=== PATIENT | male | born 1985 | race Caucasian/White ===

== ENCOUNTER → 2018-05-30 09:22 | Outpatient (CLI) | payer MEDICAID, SELFPAY ==
--- NOTE | 2018-05-30 09:29 | XR_ITS ---
EXAM: XR thoracic spine 3V HISTORY: ITS.REASON: LUMP OF SKIN POSTERIOR NECK, ACUTE MIDLINE BACK PAIN Comparison: None FINDINGS: Normal alignment. No fracture or dislocation. No lytic or blastic change. No significant degenerative change. The disc spaces are preserved. IMPRESSION: No acute finding
== END ==
PROVIDERS: PCP Nurse Practitioner Family; Visit Provider Nurse Practitioner Family
DX: M54.6 Pain in thoracic spine (principal); K22.2 Esophageal obstruction
CPT/HCPCS: 72072

== ENCOUNTER → 2018-06-11 14:19 | Outpatient (CLI) | payer MEDICAID, SELFPAY ==
--- NOTE | 2018-06-11 14:36 | US_ITS ---
US soft tissue head and neck Ordering Physician: Jerri Rivera APRN Patient Age: 32 years: Male HISTORY: ITS.REASON: LUMP SOFT TISSUE OF RT THORACIC Palpable area on back back tenderness to touch noticed one month ago TECHNIQUE: Ultrasound the superficial soft tissues of upper back. -In order to address palpable area COMPARISON :No prior FINDINGS Scanning of the palpable area was performed. It reveals small area which corresponds just deep to the skin at the palpable Area It is located 4 mm deep to the skin surface & just beneath the skin layer, where we encounter this small slightly hypoechoic area/& which correlates with the palpable area This measures 1.2 cm cm length x 1.3 cm transverse X 0.6 cm AP small slightly unique area. Only very Slightly more hyperechoic than adjacent linear subcutaneous fat... Most likely reflecting a small lipoma ------ IMPRESSION: The Small palpable area at upper back most compatible with a small lipoma by ultrasound. Ultrasound does identified a small focal area just beneath the skin surface to correlate If it should enlarge or become more problematic suggest CT follow-up to further evaluate as CT is excellent imaging tool for to confirm fat/ lipoma
== END ==
PROVIDERS: PCP Nurse Practitioner Family; Visit Provider Nurse Practitioner Family
DX: R22.2 Localized swelling, mass and lump, trunk (principal)
CPT/HCPCS: 76536

== ENCOUNTER → 2019-03-27 16:35 | Outpatient (CLI) | payer SELFPAY ==
--- NOTE | 2019-03-27 16:41 | XR_ITS ---
PROCEDURE: XR ELBOW LT MIN 3V CLINICAL INDICATION: LEFT ELBOW PAIN COMPARISON: No exams were available for comparison FINDINGS: No fracture or dislocation. No lytic or blastic change. There is normal mineralization. The joint spaces are well-preserved. No significant degenerative/arthritic changes. No erosive changes evident. Other findings:None. IMPRESSION: No acute findings. Dictated by: Martin Munoz MD 03/27/2019 19:06 Electronically signed by Martin Munoz MD in [place] 03/27/2019 19:06
== END ==
PROVIDERS: PCP Nurse Practitioner; Visit Provider Nurse Practitioner
DX: M25.522 Pain in left elbow (principal); R06.02 Shortness of breath
CPT/HCPCS: 73080

== ENCOUNTER → 2019-04-02 09:17 | Outpatient (CLI) | payer OTHER, SELFPAY ==
--- NOTE | 2019-04-02 | CA_ITS ---
APPROVED REPORT Exam: Exercise Treadmill Technologist: Jewell Stein Ht: 5 ft 3 in Wt: 286 lbs BSA: 2.25 m2 HR: 68 bpm BP: 123/64 mmHg Indications: Shortness of Breath Medical History Medications: Multi Vitamin,,,,, Fish Oil,,,,, Flonase,,,,, ZYRTEC,,,,, Aleve,,,,, Stress Test Details Test: Exercise stress testing was performed using a Yoav protocol. HR Resting HR: 85 bpm Max Heart Rate (APMHR): 185 bpm Max HR Achieved: 170 bpm Target HR (85% APMHR): 157 bpm % of APMHR: 91 Recovery HR: 98 bpm BP Resting BP: 123.0/64.0 mmHg Max BP: 210.0/76.0 mmHg Recovery BP: 125.0/67.0 mmHg ECG Clinical Exercise duration: 07:24 min Highest Stage Achieved: Exercise capacity: 10.1 METs Stress ECG Conclusion Resting ECG: Normal sinus rhythm, NS ST-T abnormalities inferiorly. Symptoms: Dyspnea. No chest pain Arrhythmias/Ectopy: Rare PVC, PAC ST-T Changes: Mild exaggeration of baseline ST abnormalities inferiorly with otherwise normal ST response to exercise. Conclusion: Probably normal GXT. GXT only (no imaging). Test Summary REST . . . . . . . Sitting REST . . . . . . . Standing REST 08:40 0.0 0.0 85 . 123/ 64 . . Stage 1 01:00 10.0 1.7 106 . . . . Stage 1 02:00 10.0 1.7 108 . . . . Stage 1 03:00 10.0 1.7 115 . 164/ 88 . . Stage 2 01:00 12.0 2.5 128 . . . . Stage 2 02:00 12.0 2.5 137 . . . . Stage 2 03:00 12.0 2.5 141 . 190/ 80 . . Stage 3 01:00 14.0 3.4 166 . . . . Stage 3 01:24 14.0 3.4 170 . . . Stop exercise at 07:24 RECOVERY . . . . . . . Protocol changed to Manual Treadmill RECOVERY 01:00 0.0 0.0 144 . 210/ 76 . . RECOVERY 02:00 0.0 0.0 131 . 210/ 76 . . RECOVERY 03:00 0.0 0.0 104 . 210/ 76 . . RECOVERY 04:00 0.0 0.0 101 . 150/ 75 . . RECOVERY 05:00 0.0 0.0 96 . 125/ 67 . . RECOVERY 05:27 0.0 0.0 95 . 125/ 67 . . Electronically signed by : Evan Mcdonnell, 04/02/2019 20:06:42
--- NOTE | 2019-04-02 10:30 | CA_ITS ---
APPROVED REPORT EXAM: Comprehensive 2D, Doppler, and color-flow Echocardiogram Personnel Representative: Shannon Fishman RDCS Ht: 5 ft 3 in Wt: 286lbs BSA: 2.25 BP: 110/70 mmHg Indications: Shortness of Breath, Obesity 2D Dimensions LVOT 1.86 cm (M/F) 1.5-2.5 M-Mode Dimensions RVDd 3.33 cm (0.9-2.6) LVDd 5.62 cm (3.5-5.7) LVDs 4.34 cm (3.5-5.7) IVSd 1.16 cm (0.6-1.1) PWd 0.92 cm (0.6-1.1) EF (Teich) 45.20% FS 22.80% EDV (Teich) 154.90 mL ESV (Teich) 84.90 mL LV Diastology E/A Ratio 1.07 Mitral Valve MV A Velocity 70.00 (40-130 cm/s) Left Ventricle Left atrium is normal size, left ventricle is normal size, there is no concentric left ventricular hypertrophy, visually estimated ejection fraction 55% with no regional wall motion abnormality, diastolic parameters are within normal range. Right Ventricle Right atrium is normal size, right ventricle is mildly enlarged with normal contractility. Aortic Valve Aortic valve is grossly normal, there is no aortic stenosis or aortic insufficiency. Mitral Valve Mitral valve is grossly normal, there is mild mitral regurgitation. Tricuspid Valve Tricuspid valve is grossly normal, there is mild tricuspid regurgitation. Tricuspid regurgitation jet velocity is inadequate for calculation of the right ventricular systolic pressure. Pulmonic Valve Pulmonic valve is poorly visualized. Great Vessels Aortic root is normal size. Pericardium No significant pericardial effusion noted. Conclusion 1. Normal left ventricular size, preserved left ventricular systolic function, visually estimated ejection fraction 55% with no regional wall motion abnormality, diastolic parameters are within normal range. 2. Mildly enlarged right ventricle with normal contractility. 3. Mild mitral and tricuspid regurgitation. 4. No significant pericardial effusion noted. Electronically signed by : Scott Gentile, 04/03/2019 06:13:36
== END ==
PROVIDERS: PCP Nurse Practitioner; Visit Provider Nurse Practitioner
DX: R06.02 Shortness of breath (principal); R06.2 Wheezing
CPT/HCPCS: 93017; 93306; 94060; 94726; 94729

== ENCOUNTER → 2019-12-09 11:14 | Outpatient (CLI) | payer OTHER, SELFPAY ==
[2019-12-10 13:49] LABS: Covid-19 Nasal PCR Sendout Lex Not Detected
== END ==
PROVIDERS: PCP Nurse Practitioner; Visit Provider Nurse Practitioner
DX: Z03.818 Encounter for observation for suspected exposure to other biological agents ruled out (principal)
CPT/HCPCS: U0004

== ENCOUNTER → 2020-01-02 12:09 | Outpatient (CLI) | payer OTHER, SELFPAY ==
[2020-01-02 17:39] LABS: Coronavirus 19 IgG Antibody Negative (Negative); Coronavirus 19 IgM Antibody Negative (Negative)
[2020-01-03 15:30] LABS: Covid-19 Nasal PCR Sendout Lex Positive
== END ==
PROVIDERS: PCP Family Medicine; Visit Provider Nurse Practitioner Family
DX: Z20.828 Contact with and (suspected) exposure to other viral communicable diseases (principal); U07.1 COVID-19
CPT/HCPCS: 36415; 86328; U0004

== ENCOUNTER → 2020-01-18 10:34 | Outpatient (CLI) | payer OTHER, SELFPAY | PROVIDERS: PCP Family Medicine; Visit Provider Family Medicine | DX: Z20.828 Contact with and (suspected) exposure to other viral communicable diseases (principal); U07.1 COVID-19 | CPT/HCPCS: U0003 ==

== ENCOUNTER → 2020-05-19 12:29 | Outpatient (CLI) | payer BC, SELFPAY ==
--- NOTE | 2020-05-19 12:35 | XR_ITS ---
PROCEDURE: XR KUB CLINICAL INDICATION: LT FLANK PAIN COMPARISON: No exams were available for comparison FINDINGS: Gas pattern-The bowel gas pattern is unremarkable. No obvious obstruction. Calcifications-No abnormal calcifications are evident. No obvious renal or ureteral calculi. Calcified phleboliths are noted in the pelvis. Bones-No acute bony anomalies evident. IMPRESSION: No acute findings. Dictated by: Loida Kiran 05/19/2020 14:08 Loida Kiran in [place] 05/19/2020 14:08
== END ==
PROVIDERS: PCP Nurse Practitioner Family; Visit Provider Nurse Practitioner Family
DX: R10.9 Unspecified abdominal pain (principal)
CPT/HCPCS: 74018

== ENCOUNTER 2022-08-21 08:44 | Emergency (ER) | payer BC, SELFPAY ==
[2022-08-21 08:46] VITALS: BP 131/69; PULSE 68; RESP 16; TEMP 36.9; O2SAT 95; BMI 55.7
--- NOTE | 2022-08-21 09:03 | EXP.UTC ---
Discharge Plan Disposition Patient Disposition: Home, Self-Care Condition: Good Prescriptions Prescriptions: New ciprofloxacin-dexamethasone 0.3-0.1 % Drops,Suspension 2 drp OTIC (EAR) BID 7 Days Qty: 1 0RF Referrals Follow up/Referrals: Sanna Kingston MD [Primary Care Provider] - See instructions Activity Restrictions/Add. Instructions Additional Instructions/Restrictions: Take tylenol or ibuprofen for pain if you have ear pain today. Use the ear drops as directed. Follow up with your regular doctor. GO TO THE ER FOR ANY WORSENING SYMPTOMS Clinical Impressions Clinical Impression: Impacted cerumen, right ear Instructions Patient Instructions: How to Instill Ear Drops, DI for Cerumen Impaction, Cerumen Impaction Discharge ED Provider: Juan R Orlando [facility] [place] HPI General Stated complaint: Ear pain R ear, Time Seen by Provider: 08/21/22 09:03 History of Present Illness Provider Complaint: He states that for the past 4 days he has had left ear pressure, left ear decreased hearing and mild left ear pain. Related Data Previous Rx's Medication Instructions Recorded ciprofloxacin 0.3 %-dexamethasone 2 drp otic (ear) BID 7 days #1 ea 08/21/22 0.1 % ear drops,suspension Allergies Allergy/AdvReac Type Severity Reaction Status Date / Time From BACTRIM Allergy Unknown Uncoded 01/29/20 17:20 [facility] Disclaimer: The information contained in this section may have been updated after the patient was seen, as this information can be updated by other users. Social History Smoking Status: Never smoker alcohol intake: never current occupational status: employed Travel in the last 8 weeks: None ROS Obtained: Yes All systems reviewed & no additional complaints except as documented Constitutional Constitutional: Denies chills and Denies fever(s) Eyes Eyes: Denies eye discharge ENT Ears, Nose, Mouth, and Throat: Reports as per HPI, Denies dizziness, Reports otalgia and Denies sore throat Cardiovascular Cardiovascular: Denies chest pain Respiratory Respiratory: Denies shortness of breath, Denies chest congestion, Denies cough, Denies stridor and Denies wheezing Gastrointestinal Gastrointestingal: Denies nausea or vomiting Musculoskeletal Musculoskeletal: Reports system reviewed and no additional complaints, except as documented and Denies arthralgias Integumentary/Breasts Skin/Breast: Denies rash Neurologic Neurologic: Denies dizziness and Denies paresthesias Allergic/Immunologic Allergic/Immunologic: Denies wheezing Physical Exam General General appearance: alert and in no apparent distress Head Head exam: atraumatic, normocephalic and normal inspection Eye Eye exam: Present normal appearance, PERRL and EOMI ENT ENT exam: Present normal oropharynx, mucous membranes moist and normal external ear exam Expanded ENT Exam TM/Canal exam: Right TM: cerumen impaction Nose exam: Absent sinus tenderness Nasal speculum exam: Bilateral: normal Mouth exam: Present normal external inspection; Absent drooling Teeth exam: Present normal inspection Throat exam: Present normal inspection Neck Neck exam: Present normal inspection, full ROM and trachea midline; Absent meningismus or lymphadenopathy Chest Chest inspection: Present normal inspection and symmetric chest wall rise; Absent tenderness Respiratory Respiratory exam: Present normal lung sounds bilaterally; Absent respiratory distress Cardiovascular Cardiovascular exam: Present regular rate and normal rhythm; Absent JVD Abdominal Exam Abdominal exam: Present soft and normal bowel sounds; Absent distention, tenderness or guarding Extremities Exam Extremities exam: Present normal inspection, full ROM and normal capillary refill; Absent calf tenderness Back Exam Back exam: Present normal inspection; Absent tenderness Neurological Exam Neurological exam: Present alert and oriented X3 Psychiatric P
[2022-08-21 09:42] VITALS: BP 131/69; PULSE 68; RESP 16; TEMP 36.9; O2SAT 95
== END 2022-08-21 09:43 | disposition home or self-care (01) ==
PROVIDERS: Emergency Provider Nurse Practitioner Family; PCP Family Medicine
DX: H61.21 Impacted cerumen, right ear (principal); H92.01 Otalgia, right ear
CPT/HCPCS: 99204; 99212; 99214; G0463

== ENCOUNTER 2022-09-27 16:10 | Emergency (ER) | payer SELFPAY ==
[2022-09-27 16:11] VITALS: BP 140/65; PULSE 98; RESP 16; TEMP 36.7; O2SAT 97; BMI 55.7
--- NOTE | 2022-09-27 16:22 | EXP.UTC ---
Discharge Plan Disposition Patient Disposition: Home, Self-Care Condition: Good Prescriptions Prescriptions: New ibuprofen [IBU] 800 mg tablet 800 mg PO Q8HP PRN (Reason: Moderate Pain) Qty: 30 0RF No Action ciprofloxacin-dexamethasone 0.3-0.1 % Drops,Suspension 2 drp OTIC (EAR) BID 7 Days Qty: 1 0RF Referrals Follow up/Referrals: Sanna Kingston MD [Primary Care Provider] - See instructions Gilles Lewis DO [Staff Physician] - See instructions Activity Restrictions/Add. Instructions Additional Instructions/Restrictions: Rest the extremity, apply ice for 15 minutes as tolerated three or four times per day, Wear the ela wrap for compression, Elevate the extremity as tolerated while you are resting. Take ibuprofen for pain. I sent in a prescription to your pharmacy. Follow up with Dr. Lewis (orthopedics). I put in a referral but you need to call his office and schedule an appointment. Follow up with your regular doctor. 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 He has had left ankle and left foot pain since then. He denies any other injury. Related Data Previous Rx's Medication Instructions Recorded ciprofloxacin 0.3 %-dexamethasone 2 drp otic (ear) BID 7 days #1 ea 08/21/22 0.1 % ear drops,suspension ibuprofen 800 mg tablet (IBU) 800 mg PO Q8HP PRN Moderate Pain 09/27/22 #30 tabs Allergies Allergy/AdvReac Type Severity Reaction Status Date / Time From BACTRIM Allergy Unknown Uncoded 01/29/20 17:20 [facility] Disclaimer: The information contained in this section may have been updated after the patient was seen, as this information can be updated by other users. Social History Smoking Status: Never smoker alcohol intake: never current occupational status: employed Travel in the last 8 weeks: None ROS Obtained: Yes All systems reviewed & no additional complaints except as documented Constitutional Constitutional: Denies chills and Denies fever(s) Eyes Eyes: Denies eye discharge ENT Ears, Nose, Mouth, and Throat: Denies dizziness, Denies otalgia and Denies sore throat Cardiovascular Cardiovascular: Denies chest pain Respiratory Respiratory: Denies shortness of breath, Denies chest congestion, Denies cough, Denies stridor and Denies wheezing Gastrointestinal Gastrointestingal: Denies nausea or vomiting Musculoskeletal Musculoskeletal: Reports as per HPI Integumentary/Breasts Skin/Breast: Denies rash Neurologic Neurologic: Denies dizziness and Denies paresthesias Allergic/Immunologic Allergic/Immunologic: Denies wheezing Physical Exam General General appearance: alert and in no apparent distress Head Head exam: atraumatic, normocephalic and normal inspection Eye Eye exam: Present normal appearance, PERRL and EOMI ENT ENT exam: Present normal exam, normal oropharynx, mucous membranes moist, TM's normal bilaterally and normal external ear exam Neck Neck exam: Present normal inspection, full ROM and trachea midline; Absent meningismus or lymphadenopathy Chest Chest inspection: Present normal inspection and symmetric chest wall rise; Absent tenderness Respiratory Respiratory exam: Present normal lung sounds bilaterally; Absent respiratory distress Cardiovascular Cardiovascular exam: Present regular rate and normal rhythm; Absent JVD Abdominal Exam Abdominal exam: Present soft and normal bowel sounds; Absent distention, tendernes
--- NOTE | 2022-09-27 16:24 | XR_ITS ---
PROCEDURE INFORMATION: Exam: XR Left Ankle Exam date and time: 09/27/2022 4:26 PM Age: 37 years old Clinical indication: Pain; Ankle; Left; Additional info: Fall TECHNIQUE: Imaging protocol: Radiologic exam of the left ankle. Views: 3 or more views. COMPARISON: No relevant prior studies available. FINDINGS: Bones/joints: There is evidence for old injury of the lateral malleolus. No acute fracture or dislocation is identified. Soft tissues: There is moderate soft tissue swelling about foot. IMPRESSION: 1. No acute osseous injury. 2. Soft tissue swelling about the foot with evidence for old injury of the lateral malleolus.
--- NOTE | 2022-09-27 16:24 | XR_ITS ---
PROCEDURE INFORMATION: Exam: XR Left Foot Exam date and time: 09/27/2022 4:27 PM Age: 37 years old Clinical indication: Pain; Foot; Left; Additional info: Fall TECHNIQUE: Imaging protocol: Radiologic exam of the left foot. Views: 3 or more views. COMPARISON: CR Ankle L 09/27/2022 4:26 PM FINDINGS: Bones/joints: There is a hallux valgus deformity. No acute fracture or dislocation is identified. Soft tissues: There is prominence of the soft tissues. IMPRESSION: No acute osseous injury.
[2022-09-27 17:19] VITALS: BP 140/65; PULSE 98; RESP 16; TEMP 36.7; O2SAT 97
== END 2022-09-27 17:21 | disposition home or self-care (01) ==
PROVIDERS: Emergency Provider Nurse Practitioner Family; PCP Family Medicine
DX: S93.402A Sprain of unspecified ligament of left ankle, initial encounter (principal); S93.602A Unspecified sprain of left foot, initial encounter; X50.1XXA Overexertion from prolonged static or awkward postures, initial encounter
CPT/HCPCS: 73610; 73630; 99212; 99214; G0463

== ENCOUNTER → 2022-11-04 11:47 | Outpatient (CLI) | payer OTHER, SELFPAY ==
--- NOTE | 2022-11-04 11:56 | XR_ITS ---
FINAL REPORT CLINICAL HISTORY: PAIN OF LEFT SCAPULA FINDINGS: THORACIC SPINE Two views demonstrate no acute fracture. There are [id number] degenerative changes with osteophytes. There is no malalignment. IMPRESSION: Degenerative changes as above. Reviewed, Interpreted and Dictated by Abdias Lazo III, MD Transcribed by Racheal Chen Authenticated and [facility]
--- NOTE | 2022-11-04 11:57 | XR_ITS ---
FINAL REPORT CLINICAL HISTORY: PAIN LT SCAPULA FINDINGS: Left shoulder Three views were obtained. There is no acute fracture or dislocation. The joint spaces appear normal. No soft tissue abnormality is identified. IMPRESSION: No acute process. Reviewed, Interpreted and Dictated by Abdias Lazo III, MD Transcribed by Racheal Chen Authenticated and [facility]
== END ==
PROVIDERS: PCP Family Medicine; Visit Provider Nurse Practitioner Family
DX: M89.8X1 Other specified disorders of bone, shoulder (principal)
CPT/HCPCS: 72072; 73030

== ENCOUNTER 2023-04-06 13:13 | Emergency (ER) | payer OTHER, MEDICAID, SELFPAY ==
[2023-04-06 13:25] VITALS: BP 134/78; PULSE 72; RESP 18; TEMP 36.8; O2SAT 97; BMI 58.6
--- NOTE | 2023-04-06 13:42 | EXP.UTC ---
Discharge Plan Disposition Patient Disposition: Home, Self-Care Condition: Good Prescriptions Prescriptions: New benzonatate [benzonatate] 100 mg capsule 100 mg PO TIDP PRN (Reason: Cough) Qty: 30 0RF methylprednisolone 4 mg Tablets,Dose Pack 4 mg PO DIRECTED 6 Days Qty: 21 0RF Rx Instructions: Take 1 pack as directed for 6 days amoxicillin-pot clavulanate 875-125 mg Tablet 1 tab PO Q12H Qty: 20 0RF oseltamivir [Tamiflu] 75 mg capsule 75 mg PO BID Qty: 10 0RF No Action atorvastatin 10 mg tablet 10 mg PO HS Patient Comments: TAKE 1 TABLET BY MOUTH ONCE DAILY montelukast 10 mg tablet 10 mg PO DAILY escitalopram oxalate 10 mg tablet 10 mg PO DAILY Patient Comments: TAKE 1 TABLET BY MOUTH ONCE DAILY DIRECTED . APPOINTMENT REQUIRED FOR FUTURE REFILLS Bessy Olmstead 200-62.5-25 mcg blister with device 1 ea INHALATION DAILY Referrals Follow up/Referrals: Sanna Kingston MD [Primary Care Provider] - See instructions Activity Restrictions/Add. Instructions Additional Instructions/Restrictions: Drink plenty of fluids. Take tylenol or ibuprofen for pain or fever. Take the medications as directed. Follow up with your regular doctor. GO TO THE ER FOR ANY WORSENING SYMPTOMS Throw your tooth brush away and get a new one. Clinical Impressions Clinical Impression: Influenza B, Strep throat Stand Alone Forms Stand Alone Forms: Work/School Release Instructions Patient Instructions: Influenza, DI for Strep Throat, DI for Influenza -- Adult, Oseltamivir Discharge ED Provider: Juan R Orlando [facility] [place] HPI General Stated complaint: tired, headache, muscle aches Mode of Arrival: Ambulatory Source of Information: Patient Limitations: No Limitations Time Seen by Provider: 04/06/23 13:42 Description of Symptoms (Recalled from Triage Doc. by RN): PATIENT C/O FATIGUE, BODY ACHES AND HEADACHE HEENT Symptoms (Recalled from RN notes): Yes Resp Symptoms (Recalled from RN notes): No Skin Symptoms (Recalled from RN notes): No MS Symptoms (Recalled from RN notes): No Functional Status (Recalled from RN notes): WNL Related Data Home Medications Medication Instructions Recorded Confirmed atorvastatin 10 mg tablet 10 mg PO HS 04/06/23 04/06/23 escitalopram oxalate 10 mg tablet 10 mg PO DAILY 04/06/23 04/06/23 fluticasone fur. 200 mcg-umeclid 1 ea inhalation DAILY 04/06/23 04/06/23 62.5 mcg-vilant 25 mcg inhalat.powder (Trelegy Ellipta) montelukast 10 mg tablet 10 mg PO DAILY 04/06/23 04/06/23 Previous Rx's Medication Instructions Recorded amoxicillin 875 mg-potassium 1 tab PO Q12H #20 tabs 04/06/23 clavulanate 125 mg tablet benzonatate 100 mg capsule 100 mg PO TIDP PRN Cough #30 caps 04/06/23 methylprednisolone 4 mg tablets in 4 mg PO DIRECTED 6 days #21 tabs 04/06/23 a dose pack oseltamivir 75 mg capsule (Tamiflu) 75 mg PO BID #10 caps 04/06/23 Allergies Allergy/AdvReac Type Severity Reaction Status Date / Time From BACTRIM Allergy Unknown Uncoded 12/06/22 13:11 Worker's Comp Is this a Worker's Comp case?: No [facility] Disclaimer: The information contained in this section may have been updated after the patient was seen, as this information can be updated by other users. Social History Smoking Status: Never smoker alcohol intake: never current occupational status: employed Travel in the last 8 weeks: None ROS Obtained: Yes All systems reviewed & no additional complaints except as documented Constitutional Constitutional: Reports chills and Reports fever(s) Eyes Eyes: Denies eye discharge ENT Ears, Nose, Mouth, and Throat: Reports as per HPI Cardiovascular Cardiovascular: Denies chest pain Respiratory Respiratory: Denies chest congestion and Reports cough Gastrointestinal Gastrointestingal: Reports nausea; Denies abdominal pain, constipation, cramping, diarrhea or vomiting Musculoskeletal Musculoskeletal: Denies arthralgias Integumentary/Breasts Skin/Breast: Denies rash Neurologic Neurologic: Denies paresthesias Physical Exam General General appearance: alert and in no apparent distress Head Head exam: atraumatic, normocephalic and normal inspection Eye Eye exam: Present normal appearance, PERRL and EOMI ENT ENT exam: Present mucous membranes moist and normal external ear exam Expanded ENT Exam TM/Canal exam: Bilateral TM: erythema and bulging Nose exam: Absent sinus tenderness Mouth exam: Present normal external inspection; Absent drooling Teeth exam: Present normal inspection Throat exam: Present tonsillar erythema, tonsillomegaly and tonsillar exudate Neck Neck exam: Present normal inspection, full ROM and trachea midline; Absent tenderness, meningismus or lymphadenopathy Chest Chest inspection: Present normal inspection and symmetric chest wall rise; Absent tenderness Respiratory Respiratory exam: Present normal lung sounds bilaterally; Absent respiratory distress, wheezes or stridor Cardiovascular Cardiovascular exam: Present regular rate and normal rhythm; Absent systolic murmur or diastolic murmur Abdominal Exam Abdominal exam: Present soft and normal bowel sounds; Absent distention, tenderness, guarding, rebound or rigidity Extremities Exam Extremities exam: Present normal inspection and normal capillary refill; Absent calf tenderness Back Exam Back exam: Present normal inspection and full ROM; Absent tenderness, CVA tenderness (R) or CVA tenderness (L) Neurological Exam Neurological exam: Present alert, oriented X3 and CN II-XII intact Psychiatric Psychiatric exam: Present normal affect and normal mood Skin Skin exam: Present warm, dry, intact and normal color Medical Decision Making Medical Records Medical records reviewed: No I reviewed the patient's medical records. Phillip Inquiry Pt receiving controlled substance: No Vital Signs: 04/06/23 13:25 Temperature 98.3 F Temperature Source Oral Pulse Rate [Left Brachial] 72 Respiratory Rate 18 Blood Pressure [Left Arm] 134/78 Blood Pressure Mean [Left Arm] 96 Blood Pressure Source [Left Arm] Automatic Cuff Blood Pressure Position [Left Arm] Sitting 02 Sat by Pulse Oximetry 97 Oxygen Delivery Method Room Air Lab Data Lab results reviewed: Yes I reviewed the patient's lab results.
[2023-04-06 13:55] LABS: UTC Influenza A Antigen Negative (Negative); UTC Influenza B Antigen Positive (Negative)
[2023-04-06 14:11] VITALS: BP 134/78; PULSE 72; RESP 18; TEMP 36.8; O2SAT 97
== END 2023-04-06 14:20 | disposition home or self-care (01) ==
PROVIDERS: Emergency Provider Nurse Practitioner Family; PCP Family Medicine
DX: J10.1 Influenza due to other identified influenza virus with other respiratory manifestations (principal); J02.0 Streptococcal pharyngitis; R07.0 Pain in throat; R51.9 Headache, unspecified; R05.9 Cough, unspecified; R53.83 Other fatigue
CPT/HCPCS: 87804; 99212; 99214; G0463

== ENCOUNTER 2024-03-07 01:13 | Emergency (ER) | payer OTHER, MEDICAID, SELFPAY ==
[2024-03-07 01:14] VITALS: BP 140/90; PULSE 97; RESP 18; TEMP 36.8; O2SAT 97; BMI 60.2
--- NOTE | 2024-03-07 01:16 | ECG_ITS ---
APPROVED REPORT Exam: Resting ECG HR:104 bpm ECG Measurements Heart Rate 104 AXES NM 146 P 53 QRSd 89 QRS 32 QT 321 T 49 QTc 382 Conclusion SINUS TACHYCARDIA No STEMI Electronically signed by : FREDDIE CANTRELL, 03/08/2024 07:11:20
--- NOTE | 2024-03-07 01:18 | CT_ITS ---
PROCEDURE INFORMATION: Exam: CTA Head With Contrast, Arteriography Exam date and time: 03/07/2024 1:44 AM Age: 38 years old Clinical indication: Stroke-like symptoms; Headache; Additional info: Possible stroke TECHNIQUE: Imaging protocol: Computed tomographic angiography of the head with contrast. Exam focused on the arteries. 3D rendering (Not supervised by radiologist): MIP and/or 3D reconstructed images were created by the technologist. Radiation optimization: All CT scans at this facility use at least one of these dose optimization techniques: automated exposure control; mA and/or kV adjustment per patient size (includes targeted exams where dose is matched to clinical indication); or iterative reconstruction. Contrast material: ISOVUE; Contrast volume: 80 ml; Contrast route: INTRAVENOUS (IV); COMPARISON: CT ANGIO HEAD 03/07/2024 1:44 AM FINDINGS: ANTERIOR CIRCULATION: Right internal carotid artery: Intracranial segment is patent with no significant stenosis or occlusion. No aneurysm. Right middle cerebral artery: No occlusion or significant stenosis. No aneurysm. Right anterior cerebral artery: No occlusion or significant stenosis. No aneurysm. Left internal carotid artery: Intracranial segment is patent with no significant stenosis. No aneurysm. Left middle cerebral artery: No occlusion or significant stenosis. No aneurysm. Left anterior cerebral artery: No occlusion or significant stenosis. No aneurysm. POSTERIOR CIRCULATION: Right vertebral artery: No occlusion or significant stenosis. No aneurysm. Left vertebral artery: No occlusion or significant stenosis. No aneurysm. Basilar artery: No occlusion or significant stenosis. No aneurysm. Right posterior cerebral artery: No occlusion or significant stenosis. No aneurysm. Left posterior cerebral artery: No occlusion or significant stenosis. No aneurysm. Veins: No venous sinus thrombosis. Brain: Normal. No hemorrhage. Unremarkable white matter. No mass effect. Cerebral ventricles: Normal. No ventriculomegaly. Bones/joints: Unremarkable. No acute fracture. Soft tissues: Unremarkable. IMPRESSION: No evidence for a embolism, occlusion, dissection, stenosis, or aneurysm.
--- NOTE | 2024-03-07 01:18 | CT_ITS ---
PROCEDURE INFORMATION: Exam: CT Head Without Contrast Exam date and time: 03/07/2024 1:42 AM Age: 38 years old Clinical indication: Stroke-like symptoms; Headache; Additional info: Possible stroke TECHNIQUE: Imaging protocol: Computed tomography of the head without contrast. Radiation optimization: All CT scans at this facility use at least one of these dose optimization techniques: automated exposure control; mA and/or kV adjustment per patient size (includes targeted exams where dose is matched to clinical indication); or iterative reconstruction. Other technique: STROKE PROTOCOL was implemented. COMPARISON: [facility] soft tissue head and neck 06/11/2018 2:29 PM FINDINGS: Brain: Normal. No hemorrhage. Age appropriate white matter. No mass effect. No focal mass. The barreto-white matter junction is intact. Cerebral ventricles: No ventriculomegaly. Paranasal sinuses: Visualized sinuses are unremarkable. No fluid levels. Mastoid air cells: Visualized mastoid air cells are well aerated. Bones: Unremarkable. No acute fracture. Soft tissues: Unremarkable. IMPRESSION: Unremarkable noncontrast examination of brain. There is no hemorrhage or mass. There is no large infarction seen. ASSESSMENT: ASPECTS ([facility] Stroke Program Early CT Score) is 10.
--- NOTE | 2024-03-07 01:18 | CT_ITS ---
PROCEDURE INFORMATION: Exam: CTA Neck With Contrast Exam date and time: 03/07/2024 1:44 AM Age: 38 years old Clinical indication: Stroke-like symptoms; Headache; Additional info: Possible stroke TECHNIQUE: Imaging protocol: Computed tomographic angiography of the neck with contrast. Exam focused on the cervical segments of the vasculature. 3D rendering (Not supervised by radiologist): MIP and/or 3D reconstructed images were created by the technologist. Radiation optimization: All CT scans at this facility use at least one of these dose optimization techniques: automated exposure control; mA and/or kV adjustment per patient size (includes targeted exams where dose is matched to clinical indication); or iterative reconstruction. Contrast material: ISOVUE; Contrast volume: 80 ml; Contrast route: INTRAVENOUS (IV); COMPARISON: CT ANGIO HEAD 03/07/2024 1:44 AM FINDINGS: Right common carotid artery: No stenosis. No dissection or occlusion. Right internal carotid artery: No significant stenosis. No dissection or occlusion. Right external carotid artery: No occlusion or stenosis of the origin. Left common carotid artery: No stenosis. No dissection or occlusion. Left internal carotid artery: No significant stenosis. No dissection or occlusion. Left external carotid artery: No occlusion or stenosis of the origin. Right vertebral artery: No stenosis. No dissection or occlusion. Left vertebral artery: No stenosis. No dissection or occlusion. Soft tissues: Normal. No significant soft tissue swelling. Bones/joints: No acute fracture. IMPRESSION: Unremarkable examination with no significant stenosis, dissection, or occlusion. REFERENCES: NASCET CRITERIA. The degree of stenosis in the cervical segment of the internal carotid artery is based on NASCET criteria. Normal is no stenosis. Mild is less than 50% stenosis. Moderate is 50-69% stenosis. Severe is 70% to 99% stenosis. Total occlusion is no detectable patent lumen.
[2024-03-07] MEDS: ONDANSETRON 4MG/2ML VIAL 4 MG IV (01:30)
[2024-03-07 01:35] LABS: Basophils # 0.1 K/mm3 (0-0.2); Basophils % 0.6 % (0.1-2.0); Eosinophils # 0.2 K/mm3 (0.0-0.4); Eosinophils % 1.8 % (0.1-12.0); Hemoglobin 14.9 g/dL (14.1-18.0); Lymphocytes # 4.7 K/mm3 (0.7-4.5); Lymphocytes % 35.9 % (10-50); Mean Corpuscular HGB Conc 33.9 g/dL (31.8-35.4); Mean Corpuscular Hemoglobin 27.2 pg (27.0-31.2); Mean Corpuscular Volume 80.3 fl (80-94); Mean Platelet Volume 10.1 fl (7.4-10.4); Monocytes # 0.9 K/mm3 (0.1-1.0); Monocytes % 7.1 % (1.7-9.3); Neutrophils # 7.1 K/mm3 (1.8-7.8); Platelet Count 257 K/mm3 (142-424); Red Blood Count 5.48 M/mm3 (4.60-6.20); Red Cell Distribution Width 13.6 % (11.5-17.5); White Blood Count 13.2 K/mm3 (4.8-10.8)
[2024-03-07 01:37] LABS: Albumin Level 4.3 g/dl (3.5-5.0); Chloride 102 mmol/L (98-107)
[2024-03-07 01:38] LABS: Potassium 3.9 mmoL/L (3.5-5.1); Sodium 135 mmol/L (136-145)
[2024-03-07 01:40] LABS: Alanine Aminotransferase 56 U/L (12-78); Aspartate Amino Transferase 45 U/L (17-59); Blood Urea Nitrogen 17 mg/dl (9-20); Creatinine Clearance Estimated 88 mL/min (50-200); Estimated Glomerular Filt Rate 93 ml/min (>60); GFR (African American) 113 ML/MIN (>60)
[2024-03-07 01:41] LABS: Albumin/Globulin Ratio 1.7 (1.1-1.8); Alkaline Phosphatase 67 U/L (38-126); Anion Gap 9.9 mEq/L (5-15); Bilirubin,Total 0.5 mg/dl (0.2-1.3); Calcium 9.5 mg/dl (8.4-10.2); Carbon Dioxide 27 mmol/L (22.0-30.0); Chol/HDL Ratio 2.8 (1-3.5); Cholesterol 127 mg/dl (140-200); Globulin 2.6 g/dL (1.3-3.2); Glucose 113 mg/dl (74-100); HDL Cholesterol 45 mg/dl (40-60); Total Protein,Serum 6.9 g/dl (6.3-8.2); Triglycerides 228 mg/dl (30-150); VLDL Cholesterol 46 mg/dL (0-40)
[2024-03-07] MEDS: SODIUM CHLORIDE 0.9% 10ML SYR (RAD ONLY) 10 ML IV (01:51)
[2024-03-07] MEDS: IOPAMIDOL-370 (76%);100ML BOTTLE 70 ML IV (01:51)
[2024-03-07] MEDS: 0.9 % SODIUM CHLORIDE 50 ML VIAL IV (01:51)
[2024-03-07 01:52] LABS: Activated Partial Thrombo Time 22.8 seconds (22.5-28.5); INR 0.82 (0.9-1.1); Prothrombin Time 9.2 seconds (9.2-12.1)
[2024-03-07 01:53] LABS: Direct LDL Cholesterol < 30.00 mg/dL (100-129)
[2024-03-07 01:57] LABS: Troponin I < 0.01 ng/ml (0.00-0.034)
[2024-03-07 02:01] VITALS: BP 120/73; PULSE 99; O2SAT 96
[2024-03-07 02:12] LABS: Ethyl Alcohol < 10 mg/dl (0-10)
[2024-03-07 02:16] LABS: Microscopic, Urine URINE MICROSCOPIC (MICROSCOPIC)
[2024-03-07 02:17] LABS: Appearance,Urine CLEAR (Clear); Bilirubin,Urine Negative (Negative); Blood, Urine Negative (Negative); Color,Urine YELLOW (Yellow); Glucose,Urine (UA) Negative (Negative); Ketones,Urine Negative (Negative); Leukocyte Esterase,Urine Negative (Negative); Nitrate,Urine Negative (Negative); Protein,Urine Negative (Negative); Urobilinogen,Urine 0.2 EU/dl (0.2)
[2024-03-07 02:31] VITALS: BP 106/52; PULSE 94; O2SAT 94
[2024-03-07 02:36] LABS: Barbiturates Screen,Urine Negative ng/ml (<200)
[2024-03-07 02:37] LABS: Benzodiazepines Screen,Urine Negative ng/ml (<200)
[2024-03-07 02:38] LABS: Amphetamine/Metha Screen,Urine Negative ng/ml (<1000); Cannabinoid Screen,Urine Negative ng/ml (<50)
[2024-03-07 02:39] LABS: Cocaine Screen,Urine Negative ng/ml (<300)
[2024-03-07 02:40] LABS: Methadone Screen,Urine Negative ng/ml (<300); Opiate Screen,Urine Negative ng/ml (<300)
[2024-03-07 02:41] LABS: Phencyclidine Screen,Urine Negative ng/ml (<25)
[2024-03-07 02:44] LABS: Bacteria,Urine Trace /lpf; Squamous Epithelial Cell,Urine Occasional #/hpf (0-5)
--- NOTE | 2024-03-07 02:56 | ED_ITS ---
Discharge Plan Disposition Patient Disposition: Home, Self-Care Condition: Good Prescriptions Prescriptions: No Action atorvastatin 10 mg tablet 10 mg PO HS Patient Comments: TAKE 1 TABLET BY MOUTH ONCE DAILY montelukast 10 mg tablet 10 mg PO DAILY escitalopram oxalate 10 mg tablet 10 mg PO DAILY Patient Comments: TAKE 1 TABLET BY MOUTH ONCE DAILY DIRECTED . APPOINTMENT REQUIRED FOR FUTURE REFILLS Bessy Ellipta 200-62.5-25 mcg blister with device 1 ea INHALATION DAILY benzonatate [benzonatate] 100 mg capsule 100 mg PO TIDP PRN (Reason: Cough) Qty: 30 0RF methylprednisolone 4 mg Tablets,Dose Pack 4 mg PO DIRECTED 6 Days Qty: 21 0RF Rx Instructions: Take 1 pack as directed for 6 days amoxicillin-pot clavulanate 875-125 mg Tablet 1 tab PO Q12H Qty: 20 0RF oseltamivir [Tamiflu] 75 mg capsule 75 mg PO BID Qty: 10 0RF Referrals Follow up/Referrals: Provider,Referral, MD [Primary Care Provider] - See instructions Activity Restrictions/Add. Instructions Additional Instructions/Restrictions: You were evaluated in the ER and are appropriate for discharge at this time. Continue your home medications as prescribed. Drink plenty of fluids. Please make an appointment with your primary care doctor for reevaluation in 2 to 3 days. Return to the ER immediately with any new, worsening, or otherwise concerning symptoms. Clinical Impressions Clinical Impression: Headache Print Language Print Language: Kuwaiti Discharge ED Provider: [facility] Adult HPI General Chief complaint: Headache Stated complaint: headache Time Seen by Provider: 03/07/24 01:17 Mode of Arrival: Wheelchair Source of Information: Patient and Spouse Limitations: Physical Limitations Description of Symptoms (Recalled from ER Triage Doc. by RN): Pt presents to ED via POV for the worst headache ever. Pt states he was having sexual intercourse and in the middle had a blinding headache and fell off the bed. Pt is A&O*4 and is bedside. Pt rates pain 7/10. History of Present Illness HPI narrative: 38-year-old male with known history of hyperlipidemia, asthma presents to the ER with his via POV for concerns of sudden onset headache. Patient and report they were having intercourse when patient suddenly grasped his head and rolled over sideways on the bed. He did not lose consciousness, did not fall off the bed, did not strike his head. Since that time he has had severe headache across the top of his head. He states it does not radiate but he is sensitive to light. He also is reporting mild nausea but no vomiting. Patient denies any history of headache like this before, no history of migraine. reports patient and the rest of the family recently had a viral illness. He denies any numbness, tingling, weakness, sensitivity to sound, chest pain, difficulty breathing, diarrhea, abdominal pain, vision changes, or other associated symptoms. Symptoms onset 1 hour prior to arrival. Related Data Home Medications ?Medication ?Instructions ?Recorded ?Confirmed atorvastatin 10 mg tablet 10 mg PO HS 04/06/23 04/06/23 escitalopram oxalate 10 mg tablet 10 mg PO DAILY 04/06/23 04/06/23 fluticasone fur. 200 mcg-umeclid 1 ea inhalation DAILY 04/06/23 04/06/23 62.5 mcg-vilant 25 mcg inhalat.powder (Trelegy Ellipta) montelukast 10 mg tablet 10 mg PO DAILY 04/06/23 04/06/23 Previous Rx's ?Medication ?Instructions ?Recorded amoxicillin 875 mg-potassium 1 tab PO Q12H #20 tabs 04/06/23 clavulanate 125 mg tablet benzonatate 100 mg capsule 100 mg PO TIDP PRN Cough #30 caps 04/06/23 methylprednisolone 4 mg tablets in 4 mg PO DIRECTED 6 days #21 tabs 04/06/23 a dose pack oseltamivir 75 mg capsule (Tamiflu) 75 mg PO BID #10 caps 04/06/23 Allergies Allergy/AdvReac Type Severity Reaction Status Date / Time From [facility] Allergy Unknown Uncoded 12/06/22 13:11 [facility] Disclaimer: The information contained in this section may have been updated after the patient was seen, as this information can be updated by other users. Social History Smoking Status: Unknown if ever smoked alcohol intake: never current occupational status: employed Travel in the last 8 weeks: None ROS Obtained: Yes Systems reviewed as appropriate & no additional complaints except as documented Per HPI Physical Exam General General appearance: alert, in no apparent distress and obese Head Head exam: atraumatic and normocephalic Eye Eye exam: Present PERRL, EOMI and other ENT ENT exam: Present mucous membranes moist Neck Neck exam: Present normal inspection and full ROM Chest Chest inspection: Present symmetric chest wall rise Respiratory Respiratory exam: Present normal lung sounds bilaterally; Absent respiratory distress, wheezes or stridor Cardiovascular Cardiovascular exam: Present regular rate and normal rhythm Abdominal Exam Abdominal exam: Present soft; Absent distention or tenderness Extremities Exam Extremities exam: Present full ROM Neurological Exam Neurological exam: Present alert, oriented X3, CN II-XII intact and other (GCS 15, normal [id number] and [id number], NIH 0); Absent motor sensory deficit Psychiatric Psychiatric exam: Present normal affect and normal mood Skin Skin exam: Present warm and dry Medical Decision Making Medical Records Medical records reviewed: Yes I reviewed the patient's medical records. Screening: Per USPSTF and CDC recommendations, given the prevalence of disease in our region, it is our hospital?s policy to screen for HIV and viral Hepatitis for all patients aged 18 and over and those with ongoing risk factors. MR Comment: Most recent visit within our system patient was evaluated in [facility] and positive for influenza, he was prescribed benzonatate, methylprednisolone, Augmentin, Tamiflu. Phillip Inquiry Pt receiving controlled substance: No Vital Signs: 03/07/24 01:14 03/07/24 02:01 03/07/24 02:31 Temperature 98.2 F Temperature Source Oral Pulse Rate 99 H 94 H Pulse Rate [Left] 97 H Respiratory Rate 18 Blood Pressure 120/73 106/52 L Blood Pressure [Right Arm] 140/90 Blood Pressure Mean [Right Arm] 106 02 Sat by Pulse Oximetry 97 96 94 L Oxygen Delivery Method Room Air 03/07/24 03:01 03/07/24 03:31 Temperature Temperature Source Pulse Rate 104 H 88 Pulse Rate [Left] Respiratory Rate Blood Pressure 122/55 L 122/102 H Blood Pressure [Right Arm] Blood Pressure Mean [Right Arm] 02 Sat by Pulse Oximetry 95 97 Oxygen Delivery Method Lab Data Lab Results 03/07/24 01:18: WBC 13.2 H, RBC 5.48, Hgb 14.9, Hct 44.0, MCV 80.3, MCH 27.2, MCHC 33.9, RDW 13.6, Plt Count 257, MPV 10.1, Neut % (Auto) 54.0, Lymph % (Auto) 35.9, [place] % (Auto) 7.1, Eos % (Auto) 1.8, Baso % (Auto) 0.6, Neut # (Auto) 7.1, Lymph # (Auto) 4.7 H, [place] # (Auto) 0.9, Eos # (Auto) 0.2, Baso # (Auto) 0.1, PT 9.2, INR 0.82 L, APTT 22.8, Sodium 135 L, Potassium 3.9, Chloride 102, Carbon Dioxide 27, Anion Gap 9.9, BUN 17, Creatinine 0.90, Estimated Creat Clear 88, Estimated GFR 93, Est GFR ( Amer) 113, Glucose 113 H, Calcium 9.5, Total Bilirubin 0.5, AST 45, ALT 56, Alkaline Phosphatase 67, Troponin I < 0.01, Total Protein 6.9, Albumin 4.3, Globulin 2.6, Albumin/Globulin Ratio 1.7, T riglycerides 228 H, Cholesterol 127 L, LDL Cholesterol Direct < 30.00 L, VLDL Cholesterol 46 H, HDL Cholesterol 45, Cholesterol/HDL Ratio 2.8, Plasma/Serum Alcohol < 10 03/07/24 01:30: HCV Ab TIANNA w/Rflx PCR Qn Negative, HIV Ag/Ab Combo Qual Negative 03/07/24 02:06: Urine Opiates Screen Negative, Urine Methadone Screen Negative, Ur Barbituates Screen Negative, Ur Phencyclidine Scrn Negative, Ur Amphetamines Screen Negative, U Benzodiazepines Scrn Negative, Urine Cocaine Screen Negative, U Marijuana (THC) Screen Negative 03/07/24 02:07: Urine Color Yellow, Urine Appearance Clear, Urine pH 7.0, Ur Specific Se[place]our 1.010, Urine Protein Negative, Urine Glucose (UA) Negative, Urine Ketones Negative, Urine Blood Negative, Urine Nitrate Negative, Urine Bilirubin Negative, Urine Urobilinogen 0.2, Ur Leukocyte Esterase Negative, Urine WBC 3-5, Ur Squamous Epith Cells Occasional, Urine Bacteria Trace 03/07/24 01:18 03/07/24 01:18 Orders (Tests/Meds): ED MEDICATIONS Generic Name Dose Route Start Last Admin Trade Name Freq PRN Reason Stop Dose Admin Sodium Chloride 10 ml 03/07/24 01:17 Sodium Chloride 0.9% 10ml Flush Syringe IV 04/06/24 01:16 NEEDED PRN Maintain IV Site Discontinued Medications Generic Name Dose Route Start Last Admin Trade Name Efraín PRN Reason Stop Dose Admin Acetaminophen 1,000 mg 03/07/24 03:21 03/07/24 03:50 Acetaminophen 500mg Tab PO 03/07/24 03:22 1,000 mg ONCE ONE Administration Diphenhydramine HCl 25 mg 03/07/24 02:02 03/07/24 03:03 Diphenhydramine 50mg/Ml Vial IV 03/07/24 02:03 25 mg ONCE ONE Administration Lactated Ringer's 1,000 mls @ 999 mls/hr 03/07/24 03:21 03/07/24 03:50 Lactated Ringer's 1000 Ml Bag IV 03/07/24 04:21 999 mls/hr .Q1H1M ONE Administration Iopamidol 70 ml 03/07/24 01:50 03/07/24 01:51 Iopamidol-370 (76%);100ml Bottle IV 03/07/24 01:51 70 ml ONCE ONE Administration Ketorolac Tromethamine 30 mg 03/07/24 02:02 03/07/24 03:03 Ketorolac 30mg/Ml Vial IV 03/07/24 02:03 30 mg ONCE ONE Administration Ondansetron HCl 4 mg 03/07/24 01:29 03/07/24 01:30 Ondansetron 4mg/2ml Vial IV 03/07/24 01:30 4 mg ONCE ONE Administration Sodium Chloride 10 ml 03/07/24 01:50 03/07/24 01:51 Sodium Chloride 0.9% 10ml Syr (Rad Only) IV 03/07/24 01:51 10 ml ONCE ONE Administration Sodium Chloride 50 ml 03/07/24 01:50 03/07/24 01:51 0.9 % Sodium Chloride 50 Ml Vial IV 03/07/24 01:51 50 ml ONCE ONE Administration ORDERS Category Date Time Status CT angio head Stat Cat Scan 03/07/24 01:[address] angio neck Stat Cat Scan 03/07/24 01:[address] head/brain wo con Stat Cat Scan 03/07/24 01:18 Completed Activated Partial Thrombo Time Stat Lab 03/07/24 01:18 Completed Complete Blood Count Auto Diff Stat Lab 03/07/24 01:18 Completed Comprehensive Metabolic Panel Stat Lab 03/07/24 01:18 Completed Drug Screen,Urine Stat Lab 03/07/24 02:06 Completed Ethyl Alcohol Stat Lab 03/07/24 01:18 Completed HIV Combo Routine Lab 03/07/24 01:30 Completed Hepatitis C Ab Qual. W/ RFX Routine Lab 03/07/24 01:30 Completed Lipid Panel Stat Lab 03/07/24 01:18 Completed Prothrombin Time INR Stat Lab 03/07/24 01:18 Completed Troponin I Q3H Lab 03/07/24 04:30 Ordered Troponin I Q3H Lab 03/07/24 07:30 Ordered Troponin I Stat Lab 03/07/24 01:18 Completed Urinalysis and Microscopic Stat Lab 03/07/24 02:07 Completed Medical Decision Narrative: In summary, this 38-year-old male presents to the emergency department today with sudden onset headache. On initial evaluation patient is hemodynamically stable, afebrile, GCS 15, NIH 0, no neurologic deficits, patient is still describing 7 out of 10 headache across the top of his head, remainder of exam is reassuring. Differential diagnosis includes but is not limited to intracranial bleed, ischemic stroke, aneurysm, vasospasm, also considered migraine, viral syndrome, electrolyte abnormality, dehydration, among others. Patient does not have any neurologic deficits that he was not stroke alerted, however I have concern for potential intracranial bleed so he was sent for emergent CT scans including noncontrast and angiography. Serum labs, cardiac workup were also obtained as part of possible stroke workup. ECG personally interpreted demonstrates sinus tachycardia, rate 104, normal axis, normal SD and QTc, no STEMI. Patient's tachycardia has resolved since the time of the ECG. Patient initially received Zofran for nausea. Labs personally reviewed demonstrate slight nonspecific leukocytosis, no anemia, normal platelets, PT/INR and APTT nonactionable, CMP nonactionable, no findings of kidney dysfunction, patient does have evidence of hyperlipidemia which is previously been diagnosed, initial troponin undetectably low less than 0.01, UA negative for findings of infection, UDS and EtOH negative. CT head personally interpreted does not demonstrate acute intracranial bleed. See radiology read for final interpretation. 0201 I received a call from [facility] radiologist Dr. Tenorio. In our discussion he indicated that patient does not have acute intracranial pathology, no bleed, no aneurysm, no acute vascular pathology and angiography. Since CT imaging was performed within less than 6 hours from the onset of headache, there is extremely high sensitivity and specificity of the noncontrast CT to evaluate for SAH. This in conjunction with the normal CTAs is extremely reassuring against acute pathology and I do not believe he requires further workup for acute intracranial pathology at this time. With reassuring findings on imaging as well as labs, I am going to proceed with treatment of patient's headache like a migraine. He is receiving Benadryl and Toradol in addition to the Zofran he received earlier. He will also receive IV fluids and acetaminophen. Patient and family are very reassured by workup so far. On reassessment after receiving additional headache medications, patient reports his symptoms are completely resolved. He has not developed any neurologic deficits. He is ambulating independently and tolerating oral intake. He feels well at this time and I believe is appropriate for discharge. I had extensive conversation with the patient and family regarding his symptoms, symptomatic monitoring, follow- up, and return precautions for the ER. They indicated understanding and the patient was discharged in stable condition. Critical Care Critical Care Time Critical Care Time: Yes Attestation: On 03/07/24, the high probability of a clinically significant, sudden or life threatening deterioration of the following system(s) (neuro) required my full and direct attention, intervention and personal management. The time I documented below is in addition to time spent performing reported procedures but includes the following listed in this critical care notation. Total Time Total Critical Care Time: 30
[2024-03-07 03:00] LABS: HIV Combo NEGATIVE (Negative)
[2024-03-07 03:01] VITALS: BP 122/55; PULSE 104; O2SAT 95
[2024-03-07] MEDS: diphenhydrAMINE 50MG/ML VIAL 25 MG IV (03:03)
[2024-03-07] MEDS: KETOROLAC 30MG/ML VIAL 30 MG IV (03:03)
[2024-03-07 03:08] LABS: Hepatitis C Ab Qual. W/ RFX NEGATIVE (Negative)
[2024-03-07 03:31] VITALS: BP 122/102; PULSE 88; O2SAT 97
[2024-03-07] MEDS: LACTATED RINGERS 1000ML 1,000 ML 999 ML IV (03:50)
[2024-03-07] MEDS: ACETAMINOPHEN 500MG TAB 1000 MG PO (03:50)
[2024-03-07 04:38] VITALS: BP 106/52; PULSE 95; RESP 20; TEMP 36.6; O2SAT 96
== END 2024-03-07 04:40 | disposition home or self-care (01) ==
PROVIDERS: Emergency Provider Emergency Medicine
DX: R51.9 Headache, unspecified (principal); H53.149 Visual discomfort, unspecified; R11.0 Nausea
CPT/HCPCS: 70450; 70496; 70498; 80053; 80061; 80307; 80320; 81001; 84484; 85025; 85610; 85730; 86803; 87389; 93005; 96361; 96374; 96375; 99285; G0480; J1200; J1885; J2405; J7120; Q9967

== ENCOUNTER 2024-03-13 06:52 | Outpatient (CLI) | payer OTHER, MEDICAID, SELFPAY ==
--- NOTE | 2024-03-13 06:56 | MR_ITS ---
FINAL REPORT TECHNIQUE: MRA and MRV images of the intracranial arterial and venous circulation with and without intravenous contrast. CLINICAL HISTORY: HEADACHE ASSOCIATED WITH SEXUAL ACTIVITY COMPARISON: None FINDINGS: MRA/MRV INTRACRANIAL CIRCULATION: MRA and MRV images with and without intravenous contrast were obtained. The cervical portions of the carotid and vertebral arteries are unremarkable in appearance, with a dominant left vertebral artery. The anterior, middle, and posterior cerebral vessels are unremarkable intracranially without evidence of aneurysm or focal stenosis. IMPRESSION: Unremarkable MRA/MRV of the intracranial circulation. Reviewed, Interpreted and Dictated by Deandre Perry MD Transcribed by Keala Orozco Authenticated and [facility]
--- NOTE | 2024-03-13 07:08 | XR_ITS ---
FINAL REPORT CLINICAL HISTORY: R/O METAL FOREIGN BODY FOR MRI COMPARISON: None FINDINGS: ORBITS Look up and look down views were obtained. No fracture is identified. There is asymmetric opacity in the right maxillary sinus, probably due to retained cyst or polyp. No radiopaque foreign body is identified. IMPRESSION: No radiopaque foreign body identified. Reviewed, Interpreted and Dictated by Deandre Perry MD Transcribed by Laila Klein Authenticated and [facility]
[2024-03-13] MEDS: SODIUM CHLORIDE 0.9% 50ML BAG 25 ML IV (08:48)
[2024-03-13] MEDS: SODIUM CHLORIDE 0.9% 10ML SYR (RAD ONLY) 10 ML IV (08:48)
[2024-03-13] MEDS: GADOTERIDOL INJ 20ML SYRINGE 20 ML IV (08:49)
[2024-03-13] MEDS: GADOTERIDOL INJ 10ML SYRINGE 9 ML IV (08:49)
== END 2024-03-13 23:59 | disposition home or self-care (01) ==
LOC: RAD 06:53
PROVIDERS: PCP Nurse Practitioner; Visit Provider Nurse Practitioner
DX: G44.82 Headache associated with sexual activity (principal); R06.02 Shortness of breath
CPT/HCPCS: 70200; 70546; A9576

== ENCOUNTER → 2024-06-17 14:32 | Outpatient (CLI) | payer MEDICAID, SELFPAY | PROVIDERS: PCP Nurse Practitioner; Visit Provider Specialist | DX: G47.33 Obstructive sleep apnea (adult) (pediatric) (principal); G47.34 Idiopathic sleep related nonobstructive alveolar hypoventilation | CPT/HCPCS: 94762 ==

== ENCOUNTER 2024-07-08 11:33 | Outpatient (CLI) | payer MEDICAID, SELFPAY ==
--- OUTSIDE RECORDS SUMMARY | 2024-07-08 11:35 | XMS_ITS | Data Portability ---
Author Organization [facility] AGATHA Zhu [place] [facility] Address [address] [place] [address] Care Team Providers Care Firearms Specialist Name Role Phone JULISSA WU Clinical Data Coordinator LUCRETIA KHOURY Primary Care Provider [phone] Assessment No assessment recorded. Plan of Treatment Reminders Order Date Submit Date Provider Last Modified By Organization Details Last Modified Time Details Appointments FOLLOW UP DAK 2024 03:10P M CT SLAUGHTER PA-C Not available Not available Not available Lab CBC w/ auto diff [address] [facility], [address] [place] [address], [phone], 07/04/2024 22:38:17 CMP, serum or plasma [address] [facility], [address] [place] [address], [address], 07/04/2024 22:38:17 Mycobacte rium tuberculo sis stimulate d gamma interfero n, qual, blood [address] [facility], [address] [place] [address], [phone], 07/04/2024 22:38:17 hepatitis (A+B+C) panel, serum [address] [facility], [address] [place] [address], [address], 07/04/2024 22:38:17 HIV (1+2) Ab screen, serum [address] [facility], [address] [place], [address], 07/04/2024 22:38:17 Referral dermatolo gist referral - No evidence of psoriatic arthritis or other rheumatol ogic condition s 2024 025 [email or web address] Darion Tamez MD, [address] [place], [address], 05/22/2024 10:29:26 Procedures None recorded. Surgeries None recorded. Imaging None recorded. Medication Orders ketoconaz ole 2 % topical cream [address], [address], [place], [address], 07/04/2024 22:38:17 hydrocort isone 2.5 % topical cream [address] [place] [address], [address], [place], [address], 07/04/2024 22:38:17 Patient TargetsNo targets recorded. 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 ?eval for psoriasis or other skin condition No evidence of psoriatic arthritis or other rheumatologic conditions Referring Physician: Julissa Wu, Rheumatology, Encounter Date: 05/17/2024 Problems Name Problem SNOMED Code Status Onset Date Resolution Date Notes Provider Name and Address Organization Details Recorded Time Asthma 407403850 Active 025 Jacqueline Patricia [facility] 15:50:35 Sleep apnea 28178239 Active Jacqueline Patricia [facility] 15:51:10 Migraine 25120900 Active 025 Jacqueline Patricia [facility] 15:51:28 Problem Notes None recorded. Procedures Surgical History Date Name Laterality Status Provider Name and Address Organization Details Recorded Time endoscopy completed JULISSA WU MD [address] [place], [address], [facility] 05/17/2024 10:09:02 [place] Teeth Extraction completed JULISSA WU MD [address] [place], [address], [facility] 05/17/2024 10:09:09 Imaging Results None recorded. Procedure Notes None recorded. Medical Equipment None Reported. Allergies Allergen ID Allergen Name Allergen Category Reaction Reaction Severity Criticality Documentation Date Start Date Code Code System Note Provider Name and Address Organization Details Recorded Time 373923 Bactrim medicatio n Not available Not available Not available 05/17/2024 96381 9 RxNorm Arlyn Larson [facility] 09:58:50 Medications Name Sig Start Date Stop Date Status Note LastModified by Organization Details LastModified Time hydrocortiso ne 2.5 % topical cream APPLY A THIN LAYER TO THE AFFECTED AREA(S) BY TOPICAL ROUTE 2 TIMES PER DAY FOR 2 WEEKS, THEN 2X WEEKLY NEEDED 2024 active Not Available Not Available Not Avai lable ketoconazole 2 % topical cream APPLY TO THE AFFECTED AREA(S) BY TOPICAL ROUTE TWICE DAILY FOR 2 WEEKS, THEN 2X WEEKLY NEEDED 2024 active Not Available Not Available Not Avai lable escitalopram 10 mg tablet Take 1 tablet every day by oral route. active Not Available Not Available No t Available atorvastatin active Not Available Not Available Not Available testosterone active Not Available Not Available Not Available phentermine active Not Available Not A vailable Not Available albuterol sulfate active Not Available Not Available Not Available amitriptylin e active no longer taking Not Available Not Available Not Available montelukast active Not Available Not A vailable Not Available Topamax active Not Available Not Avail able Not Available ezetimibe active Not Available Not Migdalia ilable Not Available Multi Vitamin active Not Available Not Available Not Available Trelegy Ellipta active Not Available Not Available Not Available Fish Oil 1,200 mg (144 mg-216 mg) capsule Take by oral route. active Not Available Not Available No t Available Vitals Date Recorded Body weight Respiratory rate Body mass index (BMI) Body height Heart rate Oxygen saturation Oxygen saturation in Arterial blood by Pulse oximetry Systolic blood pressure Diastolic blood pressure Provider Name and Address Organization Details Last Updated DateTime 577827. 66 g 16 /min 59 kg/m2 160.02 cm 89 /min 98 % 98 % 128 mm[Hg] 80 mm[Hg] Arlyn Larson [facility] 10:01:46 Social History Question Answer Notes LastModified by NXE Details LastModified Time Tobacco Smoking Status Never Smoker Arlyn Larson [facility] 05/17/2024 10:00:20 What Was The Date Of Your Most Recent Tobacco Screening? 05/17/2024 [email or web address] Information not available 05/17/2024 Sex: Unknown Functional Status Question Answer Note LastModified by NXE Details LastModified Time What is your level of alcohol consumption? Occasional [email or web address] Information not available 05/17/2024 Mental Status None recorded. Family History Relationship Description Onset Age of this Age Resolved Age Notes LastModified by Organization Details LastModified Time Father Diabetes mellitus [email or web address] Not available 2024 10:08:16 Father Hypertensive disorder [email or web address] Not available 2024 10:08:22 Mother Malignant neoplasm of skin [email or web address] Not available 2024 10:08:28 Unspecified Relation Heart disease [email or web address] Not available 2024 10:08:41 Unspecified Relation Cerebrovascu lar accident [email or web address] Not available 10:08:53 Medical History No medical history recorded. Past Encounters Encounter ID Performer Location Encounter Start Date Encounter Closed Date Diagnosis/Indication Diagnosis SNOMED-CT Code Diagnosis ICD10 Code Diagnosis Note [id number] JULISSA WU MD [facility] [address] [place] [address] 05/17/2024 09:33:13 05/19/2024 16:15:49 Generalized rash 666620276 R21 Scaly, dry, plaque-lik e rashes noted on bilateral calves, arms, face, scalp. Also has similar rashes on his thighs, which she did not show me. Denies groin or buttock involvemen t.Onset in 2022. Itchy, painful, progressiv e with time.Has not seen a dermatolog ist.Will refer to dermatolog y today for further evaluation and treatment. Reassuranc e provided that I do not appreciate signs or symptoms to suggest inflammato ry arthritis such as psoriatic arthritis. No other signs or symptoms to suggest other rheumatolo gic conditions . No signs or symptoms to suggest underlying systemic vasculitis . Follow-up as needed [id number] CT SLAUGHTER PA-C [place] [address] [place] [address] 07/04/2024 15:37:20 07/04/2024 16:24:27 Psoriasis vulgaris 955572417 L40.0 Dr[address] Crouch consulted on case Psoriasis +/- Psoriatic Arthritis (reports joint pain but not diagnosed) Non stable, chronic.BS A: 60% with special site involvemen t arms, legs, scrotum, nails, ears Pt has previously tried & failed TX with topicals.P t has sleep apnea managed with a CPAP machineRec ommended following up with PCP for weight loss. Pt reports he's on phentermin e - Discussed TX options of systemic biologics- SE of immunosupp ression reviewed. Denies personal HX & FAM HX of MS, Crohns, UC. No personal hx of malignancy .- Lab order given today for baseline biologic labs, including Quantifero n Gold, HBV & HCV serologies , HIV screen, CBC & CMP.- Will plan to start Skyrizi pending baseline labs WNL.- Pt case sent to Halle ([facility]) to start insurance approval process for Skyrizi Seborrheic dermatitis 50 689413 L21.9 The nature of the diagnosis was explainedB enign. Reassuranc e given.Photogravure Press Operator charly. Relapsing- remitting course.[place] atment options discussed. - Start ketoconazo le & hydrocorti sone cream as directed Long-term drug therapy 013106926 Z79.899 starting biologic labs Health Concerns Section Related Observation LastModified by Organization Detai ls LastModified Time None Recorded Concern Status LastModified by Organization Details LastModified Time None Recorded Advance Directives Directive None Recorded Payers Insurance Date Sequence Insurance Name Policy Number Policy Rod Covered Member ID Rod Member ID Guarantor Name 07/04/2024 1 R [id number] [facility] [id number] [facility] 07/04/2024 1 [employer] BY [employer] (MEDICAID REPLACEMENT - HMO) [facility] [id number] [facility] Notes Date Note Type Note Provider Name and Address Organization Details Recorded Time 05/17/2024 text/html Referred by larry oconnor for evaluation of autoimmune disease. He reports new onset of itchy, painful rashes that started in 2022. Started on his porras, then affected his legs, abdomen, arms, face, scalp. This has become progressive over time. He has tried other types of soaps, lotions with oatmeal without any change. He has not seen a furniture delivery driver in several years.Denies association with medication side effect.Denies association with recurrent infections, fevers. Denies any oral ulcers, genital ulcers, pleuritic pain or shortness of breath, photosensitivity, dry eye or dry mouth, Raynaud's phenomenon. Denies joint pain, stiffness, swelling. Denies blood in urine or stool. No history of inflammatory bowel disease. No history of inflammatory eye disease. No history of recurrent infections, fevers. Denies history of recurrent sinus infections, epistaxis, hemoptysis. No history of DVT or PE. His has psoriatic arthritis. Works at a [employer]. JULISSA WU MD [address] [place] [address], [address], [facility] 05/17/2024 10:26:33 07/04/2024 text/html New pt Rash - Widespread- ongoing x 7ish years- Saw advanced derm many years ago. Was given a cream and a shampoo. No efficacy. Was treated for a wart on the knee but this also was not effective Has been diagnosed with psoriatic arthritis or a psoriatic condition - rheum denies psoriatic arthritis Dr. Wu has photos in chart CT SLAUGHTER PA-C [address] [place] [address], [phone], [facility] 07/04/2024 21:38:41
--- OUTSIDE RECORDS SUMMARY | 2024-07-08 11:35 | XMS_ITS | Continuity of Care Document ---
Author Organization [facility] ANGEL Zhu [place]APLES Address [address] [place] [address] Care Team Providers Care Child Specialist Name Role Phone MANDEEP WU Maintenance And Repair Worker LUCRETIA KHOURY Primary Care Provider Assessment No assessment recorded. Plan of Treatment Reminders Order Date Submit Date Provider Last Modified By Organization Details Last Modified Time Details Appointments FOLLOW UP [facility] 2024 03:10P M CT SLAUGHTER PA-C Not available Not available Not available Lab CBC w/ auto diff [address] [facility], [address] [place] [address], [address], 07/04/2024 22:38:17 CMP, serum or plasma [address] [facility], [address] [place] [address], [address], 07/04/2024 22:38:17 Mycobacte rium tuberculo sis stimulate d gamma interfero n, qual, blood [address] [facility], [address] [place] [address], [address], 07/04/2024 22:38:17 hepatitis (A+B+C) panel, serum [address] [facility], [address] [place] [address], [address], 07/04/2024 22:38:17 HIV (1+2) Ab screen, serum [address] [facility], [facility] [place], [address], 07/04/2024 22:38:17 Referral None recorded. Procedures None recorded. Surgeries None recorded. Imaging None recorded. Medication Orders ketoconaz ole 2 % topical cream [address], [address] [place] [address], [place], [address], 07/04/2024 22:38:17 hydrocort isone 2.5 % topical cream [address], [address] [place] [address], [place], [address], 07/04/2024 22:38:17 Patient TargetsNo targets recorded. 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 Problems Name Problem SNOMED Code Status Onset Date Resolution Date Notes Provider Name and Address Organization Details Recorded Time Asthma 576201318 Active [address] [place], [place] [address]ludy Patricia [facility] 5 15:50:35 Sleep apnea 14540098 Active [facility] Jacqueline Patricia [facility] 15:51:10 Migraine 74920956 Active [address] [place], [place] [address]ludy Patricia [facility] 5 15:51:28 Problem Notes None recorded. Procedures Surgical History Date Name Laterality Status Provider Name and Address Organization Details Recorded Time endoscopy completed MANDEEP WU MD [address] [place] [address], [address], [facility] 05/17/2024 10:09:02 [place] Teeth Extraction completed MANDEEP WU MD [address] [place] [address], [address], [facility] 05/17/2024 10:09:09 Imaging Results None recorded. Procedure Notes None recorded. Medical Equipment None Reported. Allergies Allergen ID Allergen Name Allergen Category Reaction Reaction Severity Criticality Documentation Date Start Date Code Code System Note Provider Name and Address Organization Details Recorded Time 994821 Bactrim medicatio n Not available Not available Not available 05/17/2024 96193 9 RxNorm Arlyn Larson [facility] 09:58:50 Medications Name Sig Start Date [...] Available Not Available No t Available Vitals None Recorded Social History Question Answer Notes LastModified by Organizat ion Details LastModified Time Tobacco Smoking Status Never Smoker Arlyn Larson [facility] 05/17/2024 10:00:20 What Was The Date Of Your Most Recent Tobacco Screening? 05/17/2024 [email or web address] Information not available 05/17/2024 Sex: Unknown Functional Status Question Answer Note LastModified by Organizat ion Details LastModified Time What is your level of alcohol consumption? Occasional [email or web address] Information not available 05/17/2024 Mental Status None [...] SNOMED-CT Code Diagnosis ICD10 Code Diagnosis Note [id number] [facility] [place] [place] [address] [place] [address] 07/04/2024 15:37:20 07/04/2024 16:24:27 Psoriasis vulgaris 911653014 L40.0 Dr. Crouch consulted on case Psoriasis [...] labs WNL.- Pt case sent to Halle ([facility]ologics Coordin[facility] r) to start insurance approval process for Skyrizi Seborrheic dermatitis 50 115274 L21.9 The nature of the diagnosis was explainedB enign. Reassuranc e given.Lay Out Carpenter charly. Relapsing- remitting course.[place] atment options discussed. - Start ketoconazo le & hydrocorti sone cream as directed Long-term drug therapy [id number] Z79.899 starting biologic labs Health Concerns Section Related Observation LastModified by Organization Detai ls LastModified Time None Recorded Concern Status LastModified by Organization Details LastModified Time None Recorded Payers Encounter Date Sequence Insurance Name Policy Number Policy Rod Covered Member ID Rod Member ID Guarantor Name 07/04/2024 1 PASSP[employer] BY [employer] (MEDICAID REPLACEMENT - HMO) Gumaro Cox [id number] Gumaro Cox Notes Date Note Type Note Provider Name and Address Organization Details Recorded Time 07/04/2024 text/html New pt Rash - Widespread- [...] has photos in chart CT SLAUGHTER PA-C [address] [place], [address], [facility] 07/04/2024 21:38:41
--- OUTSIDE RECORDS SUMMARY | 2024-07-08 11:35 | XMS_ITS | Continuity of Care Document ---
Author Organization [facility], RHEUMATOLOGY SB Address [address] [place] [address] Care Team Providers Care General Manager Road Production Name Role Phone JULISSA WU Agronomy Instructor LUCRETIA KHOURY Primary Care Provider Assessment No assessment recorded. Plan of Treatment Reminders Order Date Submit Date Provider Last Modified By Organization Details Last Modified Time Details Appointments FOLLOW UP D[facility] 2024 03:10P M CT SLAUGHTER PA-C Not available Not available Not available Lab None recorded. Referral dermatolo gist referral - No evidence of psoriatic arthritis or other rheumatol ogic condition s 2024 025 [email or web address] Darion Tamez MD, [address] [place] [address], [address], 05/22/2024 10:29:26 Procedures None recorded. Surgeries None recorded. Imaging None recorded. Medication Orders None recorded. Patient TargetsNo targets recorded. Patient InstructionsNo instructions recorded. 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 ?eval for psoriasis or other skin condition No evidence of psoriatic arthritis or other rheumatologic conditions Referring Physician: Julissa Wu Rheumatology, Encounter Date: 05/17/2024 Problems Name Problem SNOMED Code Status Onset Date Resolution Date Notes Provider Name and Address Organization Details Recorded Time Asthma 303124893 Active 025 Jacqueline Patricia [facility] 15:50:35 Sleep apnea 19148071 Active 025 Jacqueline Patricia [facility] 05/15/202 5 15:51:10 Migraine 48562520 Active 025 Jacqueline Patricia [facility] 15:51:28 Problem Notes None recorded. Procedures Surgical History Date Name Laterality Status Provider Name and Address Organization Details Recorded Time endoscopy completed JULISSA WU MD [address] [place], [address], [facility] 05/17/2024 10:09:02 [place] Teeth Extraction completed JULISSA WU MD [address] [place], [address], [facility] 05/17/2024 10:09:09 Imaging Results None recorded. Procedure Notes None recorded. Medical Equipment None Reported. Allergies Allergen ID Allergen Name Allergen Category Reaction Reaction Severity Criticality Documentation Date Start Date Code Code System Note Provider Name and Address Organization Details Recorded Time 883715 Bactrim medicatio n Not available Not available Not available 05/17/2024 48159 9 RxNorm Arlyn Larson [facility] 5 09:58:50 Medications Name Sig Start Date Stop [...] and Address Organization Details Last Updated DateTime 753775. 66 g 16 /min 59 kg/m2 160.02 cm 89 /min 98 % 98 % 128 mm[Hg] 80 mm[Hg] Arlyn Larson [facility] 10:01:46 Social History Question Answer Notes LastModified by [employer] Details LastModified Time Tobacco Smoking Status Never Smoker Arlyn Larson [facility] 05/17/2024 10:00:20 What Was The Date Of Your Most Recent Tobacco Screening? 05/17/2024 [email or web address] Information not available 05/17/2024 Sex: Unknown Functional Status Question Answer Note LastModified by [employer] Details LastModified Time What is your level of alcohol consumption? Occasional [email or web address] Information not available 05/17/2024 Mental Status None [...] SNOMED-CT Code Diagnosis ICD10 Code Diagnosis Note [id number] JULISSA WU MD RHEUMATOL OGY [facility] [address] [place] [address] 05/17/2024 09:33:13 05/19/2024 16:15:49 Generalized rash 988269497 R21 Scaly, dry, plaque-lik e rashes noted [...] underlying systemic vasculitis . Follow-up as needed Health Concerns Section Related Observation LastModified by Organization Detai ls LastModified Time None Recorded Concern Status LastModified by Organization Details LastModified Time None Recorded Payers Encounter Date Sequence Insurance Name Policy Number Policy Rod Covered Member ID Rod Member ID Guarantor Name 05/17/2024 1 [id number] [facility] [id number] [facility] 05/17/2024 1 PASSPORT BY [facility] [facility] (MEDICAID REPLACEMENT - HMO) [facility] [id number] [facility] Notes Date Note Type Note Provider [...] any change. He has not seen a in home baby sitter in several years.Denies association with medication side [...] His has psoriatic arthritis. Works at a [employer]. JULISSA WU MD [facility] [place], [address], [facility] 05/17/2024 10:26:33
[2024-07-08 12:31] LABS: Basophils # 0.1 K/mm3 (0-0.2); Basophils % 0.7 % (0.1-2.0); Eosinophils # 0.2 Kmm3 (0.0-0.4); Eosinophils % 1.8 % (0.1-12.0); Hematocrit 45.1 % (42.0-52.0); Hemoglobin 15.6 g/dL (14.1-18.0); Immature Granulocytes # 0.03 10^3uL; Immature Granulocytes % 0.3 %; Lymphocytes # 2.4 K/mm3 (0.7-4.5); Lymphocytes % 25.2 % (10-50); Mean Corpuscular HGB Conc 34.6 g/dL (31.8-35.4); Mean Corpuscular Hemoglobin 26.7 pg (27.0-31.2); Mean Corpuscular Volume 77.1 fl (80-94); Mean Platelet Volume 10.3 fl (7.4-10.4); Monocytes # 0.6 K/mm3 (0.1-1.0); Monocytes % 6.4 % (1.7-9.3); Neutrophils # 6.2 K/mm3 (1.8-7.8); Neutrophils % 65.6 % (37.0-80.0); Nucleated Red Blood Cells # 0 10^3/uL; Nucleated Red Blood Cells % 0 %; Platelet Count 206 K/mm3 (142-424); Red Blood Count 5.85 M/mm3 (4.60-6.20); Red Cell Distribution Width 15.4 % (11.5-17.5); Red Cell Distribution Width-SD 41.9 fL; White Blood Count 9.5 K/mm3 (4.8-10.8)
[2024-07-08 12:37] LABS: Albumin Level 4.4 g/dl (3.5-5.0); Chloride 110 mmol/L (98-107); Potassium 3.6 mmoL/L (3.5-5.1); Sodium 137 mmol/L (136-145)
[2024-07-08 12:39] LABS: Blood Urea Nitrogen 12 mg/dl (9-20); Estimated Glomerular Filt Rate 83 ml/min (>60); GFR (African American) 100 ML/MIN (>60)
[2024-07-08 12:40] LABS: Alanine Aminotransferase 40 U/L (12-78); Albumin/Globulin Ratio 1.7 (1.1-1.8); Alkaline Phosphatase 65 U/L (38-126); Anion Gap 11.6 mEq/L (5-15); Aspartate Amino Transferase 37 U/L (17-59); Bilirubin,Total 0.7 mg/dl (0.2-1.3); Calcium 9.1 mg/dl (8.4-10.2); Carbon Dioxide 19 mmol/L (22.0-30.0); Globulin 2.6 g/dL (1.3-3.2); Glucose 125 mg/dl (74-100)
[2024-07-08 13:41] LABS: HIV Combo NEGATIVE (Negative)
[2024-07-09 13:17] LABS: HBsAg Screen Negative (Negative); HCV Ab Non Reactive (Non Reactive); Hep A Ab, IGM Negative (Negative); Hep B Core Ab, IgM Negative (Negative)
[2024-07-10 14:47] LABS: QuantiFERON-TB Gold Plus Negative (Negative)
== END 2024-07-08 23:59 | disposition home or self-care (01) ==
LOC: LAB 11:34
PROVIDERS: PCP Nurse Practitioner; Visit Provider Physician Assistant
DX: Z79.899 Other long term (current) drug therapy (principal)
CPT/HCPCS: 36415; 80053; 80074; 85025; 86480; 86803; 87389

== ENCOUNTER 2024-10-04 15:10 | Outpatient (CLI) | payer BC, SELFPAY ==
--- OUTSIDE RECORDS SUMMARY | 2024-10-04 15:12 | XMS_ITS | Encounter Summary ---
Author Organization [facility] Address [address] [place] [address] Care Team Providers Care Security Team Lead Name Role Phone Ann Holder APRN Primary Care Provider [phone] Ann Holder APRN Primary Care Provider [phone] Peyton Chapa AUTOMOTIVE TIRE TECHNICIAN Primary Care Provider [phone] Reason for Visit * Reason Comments Med Refill Encounter Details Date Type Department Care Team (Late st Contact Info) Description 12/10/2022 Refill [facility] [address] [place] [address] Ann Holder, AUTOMOTIVE TIRE TECHNICIAN [address] [place] [address] Depression with anxiety; Asthma, unspecified asthma severity, unspecified whether complicated, unspecified whether persistent Social History Tobacco Use Types Packs/Day Years Used Date Smoking Tobacco: Former Cigarettes 1 2011 Smokeless Tobacco: Never Alcohol Use Standard Drinks/Week Comments Yes 0 (1 standard drink = 0.6 oz pure alcohol) Alcoholic Drinks/day: Occasional alcohol use PHQ-2 Answer Date Recorded Patient Health Questionnaire-2 Score 2 03/22/2022 PHQ-9 Answer Date Recorded Patient Health Questionnaire-9 Score 14 03/22/2022 PHQ-2A Answer Date Recorded Patient Health Questionnaire-2 Score 2 03/22/2022 Sex and Gender Information Value Date Recorded Sex Assigned at Male 05/19/2021 6:36 PM EDT Legal Sex Male 6:56 PM EDT Gender Identity Male 05/19/2021 6:36 PM EDT Sexual Orientation Straight 05/19/2021 6: 36 PM EDT documented as of this encounter Miscellaneous Notes * Telephone Encounter - Flor Coombs, PharmD - 12/12/2022 1:10 PM EDT Per protocol, 1 medication(s), montelukast, has been approved for 90 day supply with 0 refill(s) [facility] pharmacy. documented in this encounter Plan of Treatment Not on file documented as of this encounter Goals Goal Patient Goal Type Associated Problems Recent Progress Patient-Stated? Author . Physcial Therapy No Armando Corey Note: Short term goals (4-6 weeks): 1. Pt. Is independent with HEP 2. Pain decreases by at least 40 % 3. Sleep is not effected by pain 4. Shoulder flexion increases to at least 145 prior to pain 5. Shoulder abduction increases to at least 110 prior to pain 6. Regarding posture, spine is symmetrical ad terminal makeup operator goals (8-12 weeks): 1. Pain decreases by at least 80 % 2. Shoulder flexion increases to at least 160 prior to pain 3. Shoulder abduction increases to at least 150 prior to pain 4. Strength: at least 4-4+ with no pain 5. Quickdash improves to no > 10 % 6. neck muscles are symmetrical 7. 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 07/24/2020 Assessment Noted Time PHQ-9 Depression Total Score: 14 023 1:11 PM EST A fall risk assessment has been complete d for the patient 01/25/2022 3:26 PM EST A Body Mass Index follow-up plan has been documented for the patient 04/25/2022 8:12 PM EST documented as of this encounter Care Teams Security Team Lead Relationship Specialty Start Date End Date Ann Holder APRN [address] [place] [id number] PCP - General Family Medicine 02/25/22 12/14/22 Ann Holder APRN [address] [place] [address] PCP - General Family Medicine 12/15/22 05/31/23 Peyton Chapa APRN [facility] [place] [address] PCP - General Family Medicine 06/01/23 documented as of this encounter
--- OUTSIDE RECORDS SUMMARY | 2024-10-04 15:12 | XMS_ITS | Clinical Summary ---
Author Organization [facility] Address [address] [place] [address] Care Team Providers Care Wire Dropper Name Role Phone Peyton Chapa APRN Primary Care Provider [phone] Allergies Active Allergy Reactions Criticality Noted Date Comments Sulfamethoxazole-Trimethop rim Unknown - Patient states they do not know rxn details,Hives Medium 09/13/2018 Medications omega-3 (Fish Oil) 1000 MG capsule Take 1,200 mg by mouth 2 (two) times a day with meals. Active Multiple Vitamin (multivitamin) tablet Take 1 tablet by mouth 1 (one) time each day. Active nutritional drink (Boost) liquid liquid Drink 1-[address] of meals - dispense 2 cases with 11 refills 237 mL 11 2 Active loratadine (Claritin) 10 MG tablet Take 10 mg by mouth 1 (one) time each day. Active albuterol 108 (90 Base) MCG/ACT inhalerIndicatio ns:Asthma, unspecified asthma severity, unspecified whether complicated, unspecified whether persistent Inhale 2 puffs if needed for wheezing. 18 g 2 Active Carboxymeth-Cell ulose-CitricAc (Plenity) capsule Take 3 capsules 20 minutes prior to lunch and dinner with 16 oz water. Can take at time of meal or immediately after if forget 20 min before. 180 capsule 2 3 Active mometasone-formo terol (Dulera 100) 100-5 MCG/ACT inhalerIndicatio ns:Asthma, unspecified asthma severity, unspecified whether complicated, unspecified whether persistent Inhale 2 puffs 2 (two) times a day. Rinse mouth with water after use to reduce aftertaste and incidence of candidiasis. Do not swallow. 39 g 3 Active escitalopram (Lexapro) 10 MG tabletIndication s:Depression with anxiety Take 1 tablet (10 mg) by mouth 1 (one) time each day. as directed 90 tablet 3 Active montelukast (Singulair) 10 MG tabletIndication s:Asthma, unspecified asthma severity, unspecified whether complicated, unspecified whether persistent TAKE 1 TABLET BY MOUTH ONCE DAILY AT NIGHT 90 tablet 4 Active Active Problems Problem Noted Date Diagnosed Date Major depressive disorder, recurrent, moderate 0 03/22/2022 Acute pain of left shoulder 03/14/2022 Second hand smoke exposure 06/17/2021 Morbid obesity with body mass index (BMI) of 40. 0 or higher 03/17/2021 Depression with anxiety 07/17/2020 Allergic rhinitis 06/19/2020 Asthma 06/19/2020 Morbid obesity 06/19/2020 ELDER (obstructive sleep apnea) 06/19/2020 Immunizations Immunization Administration Dates Next Due Influenza, injectable, quadr ivalent, preservative free 12/11/2020,12/02/2018,12/02/2018,2018 Influenza, recombinant, quad rivalent, injectable, preservative free 12/04/2020 Family History Medical History Relation Name Comments Cirrhosis Father Diabetes Father Conversions - Other Mother Hypoglyc emic disorder Relation Name Status Comments Father Mother Social History Tobacco Use Types Packs/Day Years Used Date Smoking Tobacco: Former Cigarettes 1 11 2 001 - 2011 Smokeless Tobacco: Never Alcohol Use Standard [...] Orientation Straight 05/19/2021 6: 36 PM EDT Last Filed Vital Signs Vital Sign Reading Time Taken Comments Blood Pressure 130/76 02/25/2022 4:06 PM EST Pulse 52 02/25/2022 4:06 PM EST Temperature 36.6 C (97.9 F) 12/24/2021 4:12 PM EDT Respiratory Rate 16 06/17/2021 4:02 PM EDT Oxygen Saturation 97% 02/25/2022 4:06 PM EST Inhaled Oxygen Concentration - - Weight 132 kg (291 lb) 04/14/2022 3:57 PM EST Height 160 cm (5' 2.99 ) 04/14/2022 3:57 PM EST Body Mass Index 51.56 04/14/2022 3:57 PM EST Plan of Treatment Health Maintenance Due Date Last Done Comments [facility]-HIV Screening 1983 [facility]-Hepatitis C Screening 1983 [facility]-/Child/Adol SDOH Screenings 1983 [facility]-Varicella Vaccines (1 of 2 - 13+ 2-dose series) 08/11/1996 [facility]- SDOH Screenings 08/11/2001 [facility]-Adult SDOH Screenings 08/11/2001 [facility]-DTaP,Tdap,and Td Vaccines (1 - Tdap) 08/11/2002 [facility]-Hepatitis B Vaccines (1 of 3 - 19+ 3-dose series) 08/11/2002 [facility]-Pneumococcal Vaccine: Pediatrics (0 to 5 Years) and At-Risk Patients (6 to 49 Years) (1 of 2 - PCV) 08/11/2002 HPV Vaccines (1 - 3-dose SCDM series) 08/11/2010 [facility]-Depression Screening 03/22/2023 03/22/2022, 02/22 [id number] Vaccine (3 - 2023- season) 2023 06/05/2020, 05/08/2020 [facility]-Influenza Vaccine (#1) 10/21/202412/11, 12/04/2020, 12/02/2018, Additional history exists [facility]-Zoster Vaccines (1 of 2) 08/11/2033 [facility]-Obesity Intervention Completed 023, 03/22/2022, 02/25/2022, Additional history exists [facility]-HIB Vaccines Aged Out No longer e ligible based on patient's age to complete this topic [facility]-Hepatitis A Vaccines Aged Out No longer eligible based on patient's age to complete this topic [facility]-IPV Vaccines Aged Out No longer e ligible based on patient's age to complete this topic [facility]-Rotavirus Vaccines Aged Out No lo nger eligible based on patient's age to complete this topic Goals Goal Patient Goal Type Associated Problems [...] pain 6. 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 Pain decreases by at least 80 % 2. Shoulder flexion increases to at least 160 prior to pain 3. Shoulder abduction increases to at least 150 prior to pain 4. Strength: at least 4-4+ with no pain 5. Quickdash improves to no > 10 % 6. neck muscles are symmetrical 7. NT is = Additional Health Concerns Infection Onset Date Last Indicated MRSA 07/24/2020 07/24/2020 Care Teams Wire Dropper Relationship Specialty Start Date End Date Peyton Chapa, SCOOP OPERATOR [address] [place] [address] PCP - General Family Medicine 06/01/23
--- OUTSIDE RECORDS SUMMARY | 2024-10-04 15:12 | XMS_ITS | Encounter Summary ---
Author Organization [facility] Address [address] [place] [address] Care Team Providers Care Team Cdl Driver Name Role Phone Tisha Luke APRN Primary Care Provider [phone] Ann Holder GANG INVESTIGATOR Primary Care Provider [phone] Ann Holder GANG INVESTIGATOR Primary Care Provider [phone] Peyton Chapa GANG INVESTIGATOR Primary Care Provider [phone] Reason for Visit * Reason Comments Med Refill Encounter Details Date Type Department Care Team (Late st Contact Info) Description 05/26/2021 [facility]ill [facility] [address] [place] [address] iTsha Luke APRN [address] [place] [phone] Plantar fasciitis of left foot Social History Tobacco Use Types Packs/Day Years Used Date Smoking Tobacco: Former Cigarettes Q uit: 2012 Smokeless Tobacco: Never Alcohol Use Standard Drinks/Week Comments Yes 0 (1 standard drink = 0.6 oz pure alcohol) Alcoholic Drinks/day: Occasional alcohol use PHQ-2 Answer Date Recorded Patient Health Questionnaire-2 Score 0 05/20/2021 Sex and Gender Information Value Date Recorded Sex Assigned at Male 05/19/2021 6:36 PM EDT Legal Sex Male 6:56 PM EDT Gender Identity Male 05/19/2021 6:36 PM EDT Sexual Orientation Straight 05/19/2021 6: 36 PM EDT COVID-19 Exposure Response Date Recorded In the last month, have you been in contact with someone who was confirmed or suspected to have Coronavirus / COVID-19? No / Unsure 05/19/2021 6:39 PM EDT documented as of this encounter Miscellaneous Notes * Telephone Encounter - Belle Montoya - 05/31/2021 3:33 PM EDT Per protocol, 1 medication, montelukast, has been approved for 90 day supply with 1 refill. The medication refill request has been sent to [facility] pharmacy. Meloxicam request sent to clinic triage. documented in this encounter Plan of Treatment Not on file documented as of this encounter Visit Diagnoses Diagnosis Plantar fasciitis of left foot documented in this encounter Additional Health Concerns Infection Onset Date Last Indicated Resolved Time MRSA 07/24/2020 07/24/2020 Assessment Noted Time PHQ-9 Depression Total Score: 3 08/08/19 21 4:17 PM EDT A fall risk assessment has been complete d for the patient 05/20/2021 3:46 PM EDT documented as of this encounter Care Teams Team Cdl Driver Relationship Specialty Start Date End Date Tisha Luke APRN [address] [place] [phone] PCP - General 07/03/20 02/24/22 Ann Holder APRN [address] [place] [address] PCP - General Family Medicine 02/25/22 12/14/22 Ann Holder APRN [address] [place] [address] PCP - General Family Medicine 12/15/22 05/31/23 Peyton Chapa APRN [address] [place] [phone] PCP - General Family Medicine 06/01/23 documented as of this encounter
--- OUTSIDE RECORDS SUMMARY | 2024-10-04 15:12 | XMS_ITS | Clinical Summary ---
Author Organization [facility] Address [address] [place] [address] Care Team Providers Care Electronics Mechanic Name Role Phone Provider, No Known Primary Care Provider Unavail able Allergies Active Allergy Reactions Criticality Noted Date Comments Sulfamethoxazole-Trimethoprim Hives Low 2018 Medications cetirizine (zyrTEC) 10 MG tablet Take 10 mg by mouth Daily. Active Active Problems No known active problems Immunizations Immunization Administration Dates Next Due Fluzone (or Fluarix & Flulaval for VFC) >6mos Family History Medical History Relation Name Comments Diabetes Father Obesity Father Obesity Mother Relation Name Status Comments Father Mother Social History Tobacco Use Types Packs/Day Years Used Date Smoking Tobacco: Never Abuse Screen Answer Date Recorded Unsafe at Home or Work/School Not on file Feels Threatened by Someone? Not on file 01/2023 Does Anyone Keep You from Co ntacting Others or Doint Things Outside the Home? Not on file 12/01/2022 Physical Sign of Abuse Present Not on file 1 Housing Stability Answer Date Recorded Current Living Arrangements Not on file 11/20 Potentially Unsafe Housing Conditions Not on flaco e 12/01/2022 Family and Community Support Answer Kevin e Recorded Help with Day-to-Day Activities Not on file 12/01/2022 Lonely or Isolated Not on file 12/01/2022 Employment Answer Date Recorded Do you want help finding or keeping work or a kaylen b? Not on file 12/01/2022 Disabilities Answer Date Recorded Concentrating, Remembering, or Making Decisions Difficulty Not on file 12/01/2022 Doing Errands Independently Difficulty Not on fi le 12/01/2022 Education Answer Date Recorded Help with school or training? Not on file Preferred Language Not on file 12/01/2022 Sex and Gender Information Value Date Recorded Sex Assigned at Not on file Legal Sex Male 3:58 PM EST Gender Identity Not on file Sexual Orientation Not on file Last Filed Vital Signs Vital Sign Reading Time Taken Comments Blood Pressure 130/80 02/18/2019 4:04 PM EST Pulse 75 02/18/2019 4:04 PM EST Temperature 37.2 C (98.9 F) 02/18/2019 4:04 PM EST Respiratory Rate 18 02/18/2019 4:04 PM EST Oxygen Saturation 95% 02/18/2019 4:04 PM EST Inhaled Oxygen Concentration - - Weight 131 kg (288 lb) 02/18/2019 4:04 PM EST Height 160 cm (5' 3 ) 02/18/2019 4:04 PM EST Body Mass Index 51.02 02/18/2019 4:04 PM EST Plan of Treatment Health Maintenance Due Date Last Done Comments TDAP/TD VACCINES (1 - Tdap) 08/11/2002 ANNUAL PHYSICAL 02/18/2019 HEPATITIS C SCREENING 02/18/2019 COVID-19 Vaccine (2023-2 5 season) 2023 INFLUENZA VACCINE 11/20/2024 12/02/2018 Pneumococcal Vaccine 0-49 Aged Out No longer eligible based on patient's age to complete this topic Insurance Care Teams Electronics Mechanic Relationship Specialty Start Date End Date Provider, No Known [facility] [place] [address] PCP - General 02/18/19
[2024-10-04 16:44] LABS: Hematocrit 45.0 % (42.0-52.0); Hemoglobin 15.7 g/dL (14.1-18.0); Immature Granulocytes % 0.6 %; Mean Corpuscular HGB Conc 34.9 g/dL (31.8-35.4); Mean Corpuscular Hemoglobin 28.3 pg (27.0-31.2); Mean Corpuscular Volume 81.1 fl (80-94); Nucleated Red Blood Cells % 0 %; Platelet Count 247 K/mm3 (142-424); Red Blood Count 5.55 M/mm3 (4.60-6.20); Red Cell Distribution Width-SD 42.1 fL; White Blood Count 12.6 K/mm3 (4.8-10.8)
[2024-10-04 17:26] LABS: Chloride 110 mmol/L (98-107)
[2024-10-04 17:27] LABS: Albumin Level 4.5 g/dl (3.5-5.0); Potassium 3.8 mmoL/L (3.5-5.1); Sodium 140 mmol/L (136-145)
[2024-10-04 17:29] LABS: Alanine Aminotransferase 28 U/L (12-78); Albumin/Globulin Ratio 1.7 (1.1-1.8); Alkaline Phosphatase 77 U/L (38-126); Anion Gap 14.8 mEq/L (5-15); Aspartate Amino Transferase 29 U/L (17-59); Bilirubin,Total 0.7 mg/dl (0.2-1.3); Blood Urea Nitrogen 11 mg/dl (9-20); Carbon Dioxide 19 mmol/L (22.0-30.0); Creatinine,Serum 1.00 mg/dl (0.66-1.25); Estimated Glomerular Filt Rate 82 ml/min (>60); GFR (African American) 100 ML/MIN (>60); Globulin 2.6 g/dL (1.3-3.2); Total Protein,Serum 7.1 g/dl (6.3-8.2)
[2024-10-04 17:30] LABS: Calcium 9.0 mg/dl (8.4-10.2); Glucose 119 mg/dl (74-100)
== END 2024-10-04 23:59 | disposition home or self-care (01) ==
LOC: LAB 15:10
PROVIDERS: PCP Nurse Practitioner; Visit Provider Physician Assistant
DX: Z51.81 Encounter for therapeutic drug level monitoring (principal); Z79.899 Other long term (current) drug therapy
CPT/HCPCS: 36415; 80053; 85025